=== PATIENT | female | born 1995 | race Caucasian/White ===

== ENCOUNTER → 2021-01-05 22:44 | Observation (INO) ==
[2021-01-05 20:07] LABS: Bilirubin,Urine Negative (Negative); Blood,Urine Negative (Negative); Clarity,Urine Clear (Clear); Color,Urine Light-Yellow (Yellow); Glucose,Urine (UA) Normal (Normal); Ketones,Urine Negative (Negative); Leukocyte Esterase,Urine Negative (Negative); Nitrite,Urine Negative (Negative); Protein,Urine Negative (Neg-Trace); Specific Gravity,Urine 1.012 (1.010-1.025); Urobilinogen,Urine Normal (Normal)
[~2021-01-05 22:44] MED LIST: Ringers Solution, Lactated 1,000 ML IVC ONE; Ringers Solution, Lactated 1,000 ML IVC SCH
== END | disposition home or self-care (01) ==
LOC: 1NENULAB
PROVIDERS: ADMIT Student in an Organized Health Care Education/Training Program; ATTEND Student in an Organized Health Care Education/Training Program

== ENCOUNTER 2021-02-02 11:27 | Inpatient (IN) ==
[2021-02-02 10:50] LABS: Basophils % 0.2 %; Eosinophils # 0.1 K/mcL (0.0-0.6); Eosinophils % 0.6 %; Hematocrit 36.4 % (35.3-44.9); Hemoglobin 12.2 g/dL (11.5-15.4); Immature Granulocytes % 0.8 % (0-4); Lymphocytes % 23.4 %; Mean Corpuscular HGB Conc 33.5 g/dL (31.6-35.5); Mean Corpuscular Hemoglobin 29.6 pg (28.0-33.3); Mean Corpuscular Volume 88.3 fL (83.0-100.0); Mean Platelet Volume 11.5 fL (9.4-12.4); Monocytes # 0.7 K/mcL (0.0-1.3); Monocytes % 7.6 %; Neutrophils # 5.8 K/mcL (1.6-8.9); Platelet Count 182 K/mcL (140-400); Red Blood Count 4.12 M/mcL (3.82-4.97); Red Cell Distribution Width 13.6 % (11.5-14.5); Segmented Neutrophils % 67.4 %; White Blood Count 8.6 K/mcL (4.3-11.1)
[2021-02-02 10:59] LABS: Bacteria,Urine Few per hpf (None-Few); Bilirubin,Urine Negative (Negative); Blood,Urine Negative (Negative); Clarity,Urine Clear (Clear); Color,Urine Light-Yellow (Yellow); Glucose,Urine (UA) Normal (Normal); Ketones,Urine Negative (Negative); Leukocyte Esterase,Urine Trace (Negative); Mucus,Urine Few per lpf (None-Few); Nitrite,Urine Negative (Negative); PH,Urine 6.5 pH Units (5.0-8.0); Protein,Urine Negative (Neg-Trace); RBC,Urine 0-3 per hpf (0-3); Transitional Epi Cells,Urine Few per hpf (None-Few); Urobilinogen,Urine Normal (Normal); WBC,Urine 0-3 per hpf (0-3)
[2021-02-02 11:06] LABS: Alanine Aminotransferase 7 Units/L (7-52); Aspartate Amino Transferase 12 Units/L (13-39); BUN/Creatinine Ratio 10 (6-26); Blood Urea Nitrogen 4 mg/dL (6-20); Lactate Dehydrogenase 131 Units/L (140-271); Uric Acid 4.6 mg/dL (2.3-7.6); eGFR For African Americans > 60 (> 60); eGFR For Non-African Americans > 60 (> 60)
[2021-02-02 11:14] LABS: Protein/Creatinine Ratio,Urine 0.09 mg/mg (0.00-0.20)
[~2021-02-02 11:27] MED LIST changes: +*HR* Labetalol 20 MG/4 ML SYRINGE IVP ONE; -Ringers Solution, Lactated 1,000 ML IVC ONE; -Ringers Solution, Lactated 1,000 ML IVC SCH
[2021-02-02] MEDS ORDERED: Naloxone 0.4 MG/ML INJ IVP PRN (11:37)
[2021-02-02] MEDS ORDERED: Azithromycin 500 MG in 0.9 % Sodium Chloride 250 ML IVPB PRN (11:37)
[2021-02-02] MEDS ORDERED: Lidocaine 1% 20 ML MDV INFILT PRN (11:37)
[2021-02-02] MEDS ORDERED: *HR* Nalbuphine 10 MG/ML AMPUL IV PRN (11:37)
[2021-02-02] MEDS ORDERED: *HR* Labetalol 20 MG/4 ML SYRINGE IVP PRN ×3 (11:37)
[2021-02-02] MEDS ORDERED: Metoclopramide 10 MG/2 ML VIAL IVP PRN (11:37)
[2021-02-02] MEDS ORDERED: Famotidine 20 MG/2 ML VIAL IVP PRN (11:37)
[2021-02-02] MEDS ORDERED: Ringers Solution, Lactated 1,000 ML IVC SCH (11:45)
[2021-02-02] MEDS ORDERED: miSOPROStoL 25 MCG TABLET PO PRN (13:15)
[2021-02-02] MEDS ORDERED: EPHEDrine 50 MG/ML VIAL IVP PRN (14:43)
[2021-02-02] MEDS ORDERED: Epidural Premix (fent/bupiv) 110 ML EP SCH (14:45)
[2021-02-02] MEDS ORDERED: Ropivacaine/PF 0.2% 20 ML VIAL ONE (17:17)
[2021-02-02] MEDS ORDERED: *HR* FentaNYL (PF) 100 MCG/2 ML VIAL ONE (17:17)
[2021-02-02] MEDS: Ondansetron 4 MG/2 ML VIAL IVP PRN (18:31)
[2021-02-02] MEDS ORDERED: Oxytocin 20 units/ LR 1000 mL 20 UNIT/1,000 ML BAG IVC SCH (22:00)
[2021-02-03] MEDS: Ondansetron 4 MG/2 ML VIAL IVP PRN (08:02)
[2021-02-03] MEDS ORDERED: Oxytocin 20 units/ LR 1000 mL 20 UNIT/1,000 ML BAG IVC SCH (12:22)
[2021-02-03] MEDS ORDERED: Measles/Mumps/Rubella Vacc 0.5 ML VIAL SQ PRN (12:22)
[2021-02-03] MEDS ORDERED: Benzocaine/Menthol 56 GM AEROSOL SPRAY TP PRN (12:22)
[2021-02-03] MEDS: Ibuprofen 600 MG TABLET PO PRN ×2 (14:25→20:33)
[2021-02-03] MEDS: Acetaminophen 325 MG TABLET PO PRN (17:32)
[2021-02-03] MEDS: *HR* HYDROcodone/Acet 5/325 mg TABLET PO PRN (22:42)
[2021-02-04] MEDS: Acetaminophen 325 MG TABLET PO PRN (04:49)
[2021-02-04] MEDS: Ibuprofen 600 MG TABLET PO PRN (04:49)
[2021-02-04 05:09] LABS: Basophils % 0.3 %; Eosinophils # 0.1 K/mcL (0.0-0.6); Eosinophils % 0.8 %; Hematocrit 34.8 % (35.3-44.9); Hemoglobin 11.3 g/dL (11.5-15.4); Immature Granulocytes % 0.8 % (0-4); Lymphocytes # 2.7 K/mcL (0.6-4.6); Mean Corpuscular HGB Conc 32.5 g/dL (31.6-35.5); Mean Corpuscular Hemoglobin 29.9 pg (28.0-33.3); Mean Corpuscular Volume 92.1 fL (83.0-100.0); Mean Platelet Volume 11.3 fL (9.4-12.4); Monocytes % 6.8 %; Platelet Count 188 K/mcL (140-400); Red Blood Count 3.78 M/mcL (3.82-4.97); Red Cell Distribution Width 14.2 % (11.5-14.5); Segmented Neutrophils % 72.3 %
[2021-02-04 05:18] LABS: Neutrophils # 10.3 K/mcL (1.6-8.9); White Blood Count 14.3 K/mcL (4.3-11.1)
[2021-02-04 08:19] VITALS: BP 138/92; PULSE 79; TEMP 98.1; O2SAT 99
[2021-02-04] MEDS ORDERED: Prenatal Vit/FA 1 EACH TABLET PO SCH (09:00)
[2021-02-04] MEDS: *HR* HYDROcodone/Acet 5/325 mg TABLET PO PRN (10:38)
== END 2021-02-04 15:24 | disposition home or self-care (01) | DRG 807 ==
LOC: 1NENULAB → 1NENUOBS 02-03 12:50
PROVIDERS: ADMIT Advanced Practice Midwife; ATTEND Advanced Practice Midwife